=== PATIENT | female | born 1985 ===

== ENCOUNTER 2020-07-04 14:33 | Emergency (ER) | payer OTHER ==
--- NOTE | 2020-07-04 15:11 | Emergency Department Report ---
Blank Doc - Documentation Documentation: 35-year-old female that was brought by for acute psychosis. stated she is in a manic phase. Denies taking any medication. Denies any suicidal homicidal ideation. 1- This initial assessment/diagnostic orders/clinical plan/ treatment(s) is/are subject to change based on pt's health status, clinical progression and re- assessment by fellow clinical providers in the ED. Further treatment and workup at subsequent clinical provers discretion. Patient/guardians urged not to elope from ED as their condition may be serious if not clinically assessed and managed. 2-psych consult 3-labs 4-UA 5-psych hold orders initiated
[2020-07-04] MEDS ORDERED: ZIPRASIDONE MESYLATE 20 MG VIAL IM ONE ×3 (15:22→15:34)
[2020-07-04] MEDS ORDERED: WATER FOR INJ Sterile (PF) 10 ML ONE (15:22)
[2020-07-04 15:34] LABS: Basophils % (Auto) 0.2 % (0.0-1.8); Eosinophils % (Auto) 0.4 % (0.0-4.3); Hematocrit 41.4 % (30.3-42.9); Hemoglobin 14.2 gm/dl (10.1-14.3); Lymphocytes % (Auto) 11.7 % (13.4-35.0); Mean Corpuscular HGB Conc 34 % (30-34); Mean Corpuscular Volume 95 fl (79-97); Monocytes # (Auto) 0.8 K/mm3 (0.0-0.8); Monocytes % (Auto) 9.5 % (0.0-7.3); Platelet Count 308 K/mm3 (140-440); Red Blood Count 4.37 M/mm3 (3.65-5.03); Red Cell Distribution Width 12.1 % (13.2-15.2)
[2020-07-04 15:55] LABS: Blood Urea Nitrogen 10 mg/dL (7-17); Calcium 10.1 mg/dL (8.4-10.2); Hemolysis Index 3
[2020-07-04 15:56] LABS: BUN/Creatinine Ratio 14
--- NOTE | 2020-07-04 20:12 | Emergency Department Report ---
ED Psych HPI - General Chief Complaint: Psych Stated Complaint: PSYCH EVALUATON Time Seen by Provider: 07/04/20 15:08 Source: patient Mode of arrival: Ambulatory Limitations: No Limitations - History of Present Illness Initial Comments: Chief complaint: "I need some medication. I need help." HPI: This is a 35-year-old female with history of mental health disorder who presents with "manic phase". Patient was taken by her to [facility]. Outpatient therapy was recommended. Due to severe symptoms has been brought patient to the emergency department. For 2 weeks patient has had rambling speech. She is hearing voices. Poor sleep. Erratic behavior. Patient admits to auditory loose [place]. She states that "I am hyper bahai. I am having a bipolar moment." She blames her new job as a source for stress. She denies suicidal homicidal ideation. She states that "I really need some medication. I really need help." She exhibits paranoia. She informed me that a person in the waiting room was filming her with a smart phone. Patient was evaluated by a psychiatrist in the past for a "mental breakdown". S he currently does not take any medication. She does not have a history of medical condition otherwise. MD Complaint: other (Erratic behavior delusional thought pattern paranoia) -: week(s) (2 weeks) Associated Psychiatric Symptoms: racing thoughts, auditory hallucinations History of same: Yes Quality: constant Improves With: none Worsens With: none Context: not taking psychiatric Associated Symptoms: denies other symptoms Treatments Prior to Arrival: none, other (Evaluation [facility]) - Related Data Home Medications Medication Instructions Recorded Confirmed Last Taken No Known Home Medications [No 07/04/20 07/04/20 Unknown Reported Home Medications] Allergies Allergy/AdvReac Type Severity Reaction Status Date / Time Penicillins Allergy Unknown Verified 07/04/20 15:23 ED Review of Systems ROS: Stated complaint: PSYCH EVALUATON Other details as noted in HPI Comment: All other systems reviewed and negative Constitutional: denies: fever, malaise Respiratory: denies: cough, shortness of breath Gastrointestinal: denies: abdominal pain, nausea, vomiting Psychiatric: auditory hallucinations. denies: visual hallucinations, homicidal thoughts, suicidal thoughts ED Past Medical Hx - Past Medical History Previous Medical History?: Yes Hx Psychiatric Treatment: Yes - Surgical History Past Surgical History?: No - Social History Smoking Status: Never Smoker Substance Use Type: None - Medications Home Medications: Home Medications Medication Instructions Recorded Confirmed Last Taken Type No Known Home Medications [No 07/04/20 07/04/20 Unknown History Reported Home Medications] ED Physical Exam - General Limitations: No Limitations General appearance: alert, in no apparent distress - Head Head exam: Present: atraumatic, normocephalic - Eye Eye exam: Present: normal appearance - ENT ENT exam: Present: mucous membranes moist - Neck Neck exam: Present: normal inspection, full ROM - Respiratory Respiratory exam: Present: normal lung sounds bilaterally. Absent: respiratory distress, wheezes, rales, rhonchi - Cardiovascular Cardiovascular Exam: Present: regular rate, normal rhythm, normal heart sounds. Absent: systolic murmur, diastolic murmur, rubs, gallop - GI/Abdominal GI/Abdominal exam: Present: soft, normal bowel sounds. Absent: distended, tenderness, guarding - Extremities Exam Extremities exam: Present: normal inspection - Back Exam Back exam: Present: normal inspection - Neurological Exam Neurological exam: Present: alert, oriented X3 - Psychiatric Psychiatric exam: Present: agitated, anxious - Skin Skin exam: Present: warm, dry, intact, normal color. Absent: rash ED Course Vital Signs 07/04/20 07/04/20 15:23 17:19 Temperature 99.4 F 98.1 F Pulse Rate 114 H 82 Respiratory 22 19 Rate Blood Pressure 190/103 Blood Pressure 113/62 [Left] O2 Sat by Pulse 100 98 Oximetry ED Medical Decision Making - Lab Data Result diagrams: 07/04/20 15:26 07/04/20 15:26 Laboratory Results - last 24 hr 07/04/20 07/04/20 07/04/20 15:26 15:26 15:26 WBC 8.6 RBC 4.37 Hgb 14.2 Hct 41.4 MCV 95 MCH 33 H MCHC 34 RDW 12.1 L Plt Count 308 Lymph % (Auto) 11.7 L [place] % (Auto) 9.5 H Eos % (Auto) 0.4 Baso % (Auto) 0.2 Lymph # (Auto) 1.0 L [place] # (Auto) 0.8 Eos # (Auto) 0.0 Baso # (Auto) 0.0 Seg Neutrophils % 78.2 H Seg Neutrophils # 6.8 Sodium 139 Potassium 3.5 L Chloride 101.6 Carbon Dioxide 21 L Anion Gap 20 BUN 10 Creatinine 0.7 Estimated GFR > 60 BUN/Creatinine Ratio 14 Glucose 193 H Calcium 10.1 HCG, Qual Salicylates < 0.3 L Acetaminophen Plasma/Serum Alcohol 07/04/20 07/04/20 07/04/20 15:26 15:26 15:26 WBC RBC Hgb Hct MCV MCH MCHC RDW Plt Count Lymph % (Auto) [place] % (Auto) Eos % (Auto) Baso % (Auto) Lymph # (Auto) [place] # (Auto) Eos # (Auto) Baso # (Auto) Seg Neutrophils % Seg Neutrophils # Sodium Potassium Chloride Carbon Dioxide Anion Gap BUN Creatinine Estimated GFR BUN/Creatinine Ratio Glucose Calcium HCG, Qual Negative Salicylates Acetaminophen 5.0 L Plasma/Serum Alcohol < 0.01 - Medical Decision Making This is a 35-year-old female who presents with auditory hallucinations paranoia delusions. Acute psychosis presumably due to previous mental health disorder. Patient is medically clear for psychiatric care. 1013 form filled out to initiate involuntary hold. CBC chemistry serum toxicology all within normal limits. Patient initially had hypertension tachycardia due to agitation. Patient does not have a history of hypertension. Blood pressure does not need lowering at this time. With chemical restraint IM Petros vital signs normalized. Repeat heart rate 82 bpm. Repeat blood pressure 113/82. Critical care attestation.: If time is entered above; I have spent that time in minutes in the direct care of this critically ill patient, excluding procedure time. ED Disposition Clinical Impression: Acute psychosis Disposition: DC/TX-[id number] ANOTHER TYPE HLTHCARE Is pt being admited?: No Does the pt Need Aspirin: No Condition: Stable
[2020-07-04 21:29] LABS: Amphetamine Screen,Urine Negative; Benzodiazepines Screen,Urine Negative; Cannabinoid Screen,Urine Negative; Cocaine Screen,Urine Negative; Methadone Screen,Urine Negative; Opiate Screen,Urine Negative
[2020-07-04 21:55] LABS: Bacteria,Urine 1+ /HPF (Negative); Bilirubin,Urine NEG (Negative); Blood,Urine NEG (Negative); Color,Urine Yellow (Yellow); Hyaline Casts,Urine 1 /LPF; Mucus,Urine 1+ /HPF; Urobilinogen,Urine < 2.0 mg/dL (<2.0)
[2020-07-05] MEDS ORDERED: hydrOXYzine PAMOATE 25 MG CAP PO ONE (00:14)
[2020-07-05] MEDS ORDERED: ZIPRASIDONE MESYLATE 20 MG VIAL IM ONE (04:34)
[2020-07-05] MEDS ORDERED: WATER FOR INJ Sterile (PF) 10 ML ONE (04:35)
[2020-07-05 10:04] VITALS: BP 149/87
== END 2020-07-05 10:04 | disposition other institution (70) ==
LOC: ED 14:33
DX: F23 Brief psychotic disorder (principal); Z88.0 Allergy status to penicillin
CPT/HCPCS: 36415; 80048; 80307; 81001; 84703; 85025; 87086; 96372; 99285; J3486; Q0177; 80320; G0480